=== PATIENT | female | born 1955 | race Caucasian/White ===

== ENCOUNTER 2023-05-04 13:42 | Day surgery (SDC) | payer MEDICARE ==
[2023-05-04] MEDS: Polymyxin B/Trimethoprim 10 ML Bottle EYELF SCH (14:22)
[2023-05-04] MEDS: Brimonidine 0.2% Ophth Soln 5 ML Bottle EYELF SCH (14:26)
[2023-05-04] MEDS: Phenylephrine 2.5% Ophth Soln 2 ML Bot EYELF SCH (14:32)
[2023-05-04] MEDS: Tropicamide 1% Ophth Soln 3 ML Bottle EYELF SCH (14:37)
[2023-05-04] MEDS: Tetracaine HCl/PF 0.5% 4 ML Bottle EYEBOTH SCH (15:29)
[2023-05-04] MEDS: Lidocaine 1% PF 2 ML SDV INJECT SCH (15:47)
[2023-05-04] MEDS: Cefuroxime 10 MG/ML SYRINGE EYELF SCH (15:59)
[2023-05-04] MEDS: Pilocarpine 4% Ophth Soln 15 ML Bot EYELF SCH (16:00)
== END 2023-05-04 16:14 | disposition home or self-care (01) ==
LOC: JD.SDS 13:42
PROVIDERS: ATTEND Ophthalmology
DX: H25.89 Other age-related cataract (principal); D23.111 Other benign neoplasm of skin of right upper eyelid, including canthus; D23.121 Other benign neoplasm of skin of left upper eyelid, including canthus; D48.5 Neoplasm of uncertain behavior of skin
CPT/HCPCS: A9270-GY; J0697; J3490

== ENCOUNTER 2023-10-10 10:09 | Emergency (ER) | payer MEDICARE ==
[2023-10-10 11:08] LABS: APPEARANCE,URINE CLOUDY (Clear); BILIRUBIN,URINE NEGATIVE (Negative); COLOR,URINE DARK YELLOW (Yellow); GLUCOSE,URINE NEGATIVE (Negative); KETONES,URINE NEGATIVE (Negative); LEUKOCYTE ESTERASE,URINE TRACE (Negative); NITRITE,URINE POSITIVE (Negative); OCCULT BLOOD,URINE 3+ (Negative); PROTEIN,URINE 1+ (Negative)
[2023-10-10 11:26] LABS: AMORPHOUS SEDIMENT,URINE FEW /hpf (NOT SEEN); BACTERIA,URINE MANY /hpf (FEW); MUCUS,URINE MODERATE /hpf (FEW); RBC,URINE 20-30 /hpf (0-5); SQUAMOUS EPITHELIAL CELLS,UR 0-5 /hpf (0-5)
[2023-10-10 11:27] LABS: YEAST BUDDING,URINE RARE (NOT SEEN)
== END 2023-10-10 12:35 | disposition home or self-care (01) ==
LOC: JD.ED 10:09
DX: N39.0 Urinary tract infection, site not specified (principal); N32.81 Overactive bladder; J44.9 Chronic obstructive pulmonary disease, unspecified; Z79.899 Other long term (current) drug therapy; Z79.82 Long term (current) use of aspirin
CPT/HCPCS: 51798; 81001; 87086; 87088; 87186; 99283

== ENCOUNTER 2024-08-02 13:04 | Inpatient (IN) | payer MEDICARE ==
[2024-08-02] MEDS: methylPREDNISolone Sodium Succinate 125 MG/2 ML SDV IVPUSH ONE (13:21)
[2024-08-02] MEDS: Sodium Chloride 0.9% 10 ML Syringe FLUSH PRN (13:21)
[2024-08-02 13:29] LABS: BASOPHILS PERCENT AUTO 0.2 % (0.0-1.0); EOSINOPHILS PERCENT AUTO 0.2 % (0.0-6.0); HEMATOCRIT 41.9 % (37.0-47.0); HEMOGLOBIN 13.6 gm/dl (12.0-16.0); IMMATURE GRAN ABSOLUTE AUTO 0.05 K/mm3 (0.00-0.05); IMMATURE GRAN PERCENT AUTO 0.4 % (0.0-0.4); LYMPHOCYTES ABSOLUTE AUTO 1.1 K/mm3 (1.0-4.8); MEAN CORPUSCULAR HEMOGLOBIN 32.2 pg (28.0-32.0); MEAN CORPUSCULAR HGB CONC 32.5 g/dl (32.0-36.0); MEAN CORPUSCULAR VOLUME 99.1 fl (83.0-99.0); MONOCYTES ABSOLUTE AUTO 1.4 K/mm3 (0.0-0.8); MONOCYTES PERCENT AUTO 11.6 % (0.0-8.0); NEUTROPHILS ABSOLUTE AUTO 9.5 K/mm3 (1.8-7.7); NEUTROPHILS PERCENT AUTO 78.6 % (41.0-71.0); PLATELET COUNT,PLT 201 K/mm3 (150-400); RED BLOOD CELL COUNT 4.23 M/mm3 (4.10-5.30); WHITE BLOOD CELL COUNT,WBC 12.07 K/mm3 (3.9-11.3)
[2024-08-02] MEDS: Albuterol/Ipratropium 3.0-0.5 MG/3 ML Neb Soln NEB ONE (13:38)
[2024-08-02 13:53] LABS: LACTIC ACID 0.9 mmol/L (0.4-2.0)
[2024-08-02 14:05] LABS: ALBUMIN 3.5 g/dl (3.4-5.0); BILIRUBIN TOTAL 0.6 mg/dL (0.2-1.0); BUN/CREATININE RATIO 17.1 (14-18); CALCIUM 8.7 mg/dL (8.5-10.1); CREATININE 0.7 mg/dL (0.55-1.02); EST CRCL DRUG DOSING (CG) 60.59 mL/min; MAGNESIUM 2.1 mg/dL (1.8-2.4); PROTEIN TOTAL,TP 6.9 g/dl (6.4-8.2); TSH 0.76 uIU/mL (0.358-3.74)
[2024-08-02 14:16] LABS: BASE EXCESS ARTERIAL 7.1 (-2-2.0); BICARBONATE,ARTERIAL 33.1 meq/L (22.0-26.0); O2 SATURATION ARTERIAL 97.1 % (96.0-97.0)
[2024-08-02] MEDS: Albuterol/Ipratropium 3.0-0.5 MG/3 ML Neb Soln ONE (14:46)
[2024-08-02 14:59] LABS: BILIRUBIN,URINE 1+ (Negative); COLOR,URINE YELLOW (Yellow); GLUCOSE,URINE NEGATIVE (Negative); KETONES,URINE NEGATIVE (Negative); LEUKOCYTE ESTERASE,URINE NEGATIVE (Negative); NITRITE,URINE NEGATIVE (Negative); OCCULT BLOOD,URINE 3+ (Negative); PH,URINE 7.5 (5.0-8.0); PROTEIN,URINE 3+ (Negative); UROBILINOGEN,URINE 0.2 (0.2-1.0)
[2024-08-02 15:04] LABS: APPEARANCE,URINE SLT CLOUDY (Clear)
[2024-08-02 15:09] LABS: BACTERIA,URINE MODERATE /hpf (FEW); MUCUS,URINE FEW /hpf (FEW); RBC,URINE TOO NUMEROUS TO CNT /hpf (0-5); SQUAMOUS EPITHELIAL CELLS,UR 0-5 /hpf (0-5); WBC,URINE 0-5 /hpf (0-5)
[2024-08-02 15:10] LABS: BARBITURATE SCREEN,URINE NEGATIVE (CUTOFF=200); BENZODIAZEPINES SCREEN,URINE NEGATIVE (CUTOFF=150); BUPRENORPHINE SCREEN,URINE NEGATIVE (CUTOFF=10); METHADONE SCREEN, URINE NEGATIVE (CUTOFF=200); METHAMPHETAMINES SCREEN, URINE NEGATIVE (CUTOFF=500); OXYCODONE SCREEN,URINE PRESUMPTIVE POSITIVE (CUT0FF=100); THC SCREEN,URINE 20 NG/ML NEGATIVE (CUTOFF=50)
[2024-08-02 15:12] LABS: AMPHETAMINES SCREEN, URINE NEGATIVE (CUTOFF=500)
[2024-08-02] MEDS: cefTRIAXone 1 GM Vial IVPUSH ONE (15:33)
[2024-08-02] MEDS: Gabapentin 300 MG Cap PO ONE (15:33)
[2024-08-02] MEDS: Morphine 15 MG Tab.ER PO ONE (15:33)
[2024-08-02] MEDS: SUMAtriptan 50 MG Tab PO ONE (15:33)
[2024-08-02] MEDS: Nicotine 21 MG/24 Hr Patch TRDERM ONE (15:34)
[2024-08-02] MEDS ORDERED: Sodium Chloride 0.9% 100 ML IV SCH (16:30)
[2024-08-02] MEDS: Iopamidol 755 Mg/ML 100 ML Bottle IVPUSH ONE (16:40)
[2024-08-02] MEDS: Aspirin 81 MG Tab.Chew PO ONE (17:58)
[2024-08-02] MEDS ORDERED: Albuterol/Ipratropium 3.0-0.5 MG/3 ML Neb Soln NEB PRN (18:44)
[2024-08-02] MEDS ORDERED: Naloxone 0.4 MG/ML SDV IVPUSH PRN (18:46)
[2024-08-02] MEDS ORDERED: Acetaminophen 325 MG Tab PO PRN (18:46)
[2024-08-02] MEDS ORDERED: Melatonin 3 MG Tab PO PRN (18:46)
[2024-08-02] MEDS ORDERED: Sennosides/Docusate Sodium 50-8.6 MG Tab PO PRN (18:46)
[2024-08-02] MEDS ORDERED: Ondansetron 4 MG/2 ML SDV IV PRN (18:46)
[2024-08-02] MEDS ORDERED: Cyclobenzaprine 10 MG Tab PO PRN (18:48)
[2024-08-02] MEDS ORDERED: SUMAtriptan 50 MG Tab PO PRN (18:48)
[2024-08-02] MEDS: Azithromycin 500 MG in Sodium Chloride 0.9% 250 ML IV SCH (19:47)
[2024-08-02] MEDS: oxyCODONE 5 MG Tab PO PRN (20:13)
[2024-08-02] MEDS: Famotidine 20 MG/2 ML SDV IVPUSH SCH (20:14)
[2024-08-03] MEDS: Morphine 2 MG/ML SYRINGE IVPUSH PRN (00:41)
[2024-08-03] MEDS ORDERED: Calcium Carbonate 500 MG Tab.Chew PO PRN (02:14)
[2024-08-03] MEDS: Gabapentin 600 MG Tab PO SCH (04:33)
[2024-08-03] MEDS: Gabapentin 100 MG Cap PO SCH (04:33)
[2024-08-03] MEDS ORDERED: SUMAtriptan 50 MG Tab PO PRN (04:47)
[2024-08-03] MEDS: Non-Formulary Medication 1 Each (Gabapentin 800 MG Tablet) PO SCH (05:17)
[2024-08-03] MEDS: Pantoprazole 40 MG Tab.CR PO SCH (05:23)
[2024-08-03 05:49] LABS: BASOPHILS PERCENT AUTO 0.1 % (0.0-1.0); HEMATOCRIT 42.7 % (37.0-47.0); HEMOGLOBIN 14.2 gm/dl (12.0-16.0); IMMATURE GRAN ABSOLUTE AUTO 0.03 K/mm3 (0.00-0.05); IMMATURE GRAN PERCENT AUTO 0.3 % (0.0-0.4); LYMPHOCYTES PERCENT AUTO 10.4 % (24.0-44.0); MEAN CORPUSCULAR HEMOGLOBIN 32.3 pg (28.0-32.0); MEAN CORPUSCULAR HGB CONC 33.3 g/dl (32.0-36.0); MEAN PLATELET VOLUME 9.4 fl (9.4-12.3); MONOCYTES ABSOLUTE AUTO 0.7 K/mm3 (0.0-0.8); MONOCYTES PERCENT AUTO 7.3 % (0.0-8.0); NEUTROPHILS ABSOLUTE AUTO 7.7 K/mm3 (1.8-7.7); NEUTROPHILS PERCENT AUTO 81.9 % (41.0-71.0); PLATELET COUNT,PLT 200 K/mm3 (150-400); WHITE BLOOD CELL COUNT,WBC 9.41 K/mm3 (3.9-11.3)
[2024-08-03 06:28] LABS: A/G RATIO 0.9 (1-2); ANION GAP 9.2 (5-15); BILIRUBIN TOTAL 0.5 mg/dL (0.2-1.0); C-REACTIVE PROTEIN 7.98 mg/dL (<0.30); CALCIUM 9.1 mg/dL (8.5-10.1); CREATININE 0.6 mg/dL (0.55-1.02); EST CRCL DRUG DOSING (CG) 69.27 mL/min; MAGNESIUM 2.3 mg/dL (1.8-2.4); POTASSIUM,K 4.2 mEq/L (3.5-5.1); PROTEIN TOTAL,TP 6.5 g/dl (6.4-8.2)
[2024-08-03] MEDS: predniSONE 20 MG Tab PO SCH (06:45)
[2024-08-03] MEDS ORDERED: Enoxaparin 40 MG/0.4 ML Syringe SUBCUT SCH (09:00)
[2024-08-03] MEDS ORDERED: Non-Formulary Medication 1 Each (Omeprazole [Omeprazole] 40 MG Capsule.Dr) PO SCH (09:00)
[2024-08-03] MEDS ORDERED: Morphine 15 MG Tab.ER PO SCH (09:00)
[2024-08-03] MEDS ORDERED: Nicotine 21 MG/24 Hr Patch TRDERM SCH (09:00)
== END 2024-08-03 10:26 | disposition left against medical advice (07) | DRG 193 ==
LOC: JD.ED 13:04 → JD.MS 18:09
PROVIDERS: ADMIT Family Medicine; ATTEND Student in an Organized Health Care Education/Training Program
PROC: 4A033R1 Measurement of Arterial Saturation, Peripheral, Percutaneous Approach (ICD-10-PCS; principal; 2024-08-02)
DX: J18.9 Pneumonia, unspecified organism (principal); I21.A1 Myocardial infarction type 2; J96.01 Acute respiratory failure with hypoxia; J96.02 Acute respiratory failure with hypercapnia; J44.1 Chronic obstructive pulmonary disease with (acute) exacerbation; F11.20 Opioid dependence, uncomplicated; J44.0 Chronic obstructive pulmonary disease with (acute) lower respiratory infection; K59.09 Other constipation; I27.21 Secondary pulmonary arterial hypertension; G43.909 Migraine, unspecified, not intractable, without status migrainosus; F17.210 Nicotine dependence, cigarettes, uncomplicated; G62.9 Polyneuropathy, unspecified; R91.8 Other nonspecific abnormal finding of lung field; R79.89 Other specified abnormal findings of blood chemistry; Z79.52 Long term (current) use of systemic steroids; Z87.81 Personal history of (healed) traumatic fracture; Z98.49 Cataract extraction status, unspecified eye; Z99.81 Dependence on supplemental oxygen; Z79.2 Long term (current) use of antibiotics; Z98.890 Other specified postprocedural states; Z79.899 Other long term (current) drug therapy
CPT/HCPCS: 36415; 36600; 71045; 71275; 80053; 80306; 81001; 82803; 83605; 83735; 84443; 84484 ×3; 85025; 85379; 87428; 93005; 94640; 96374; 96375; 99285; A9270 ×5; C1758; J0696; J2919; Q9967; 84100; 86140; 93010; 94761; J0456; J2270; J7050; J7512

== ENCOUNTER 2024-12-09 09:45 | Emergency (ER) | payer MEDICARE ==
[2024-12-09] MEDS: Ketorolac 30 MG/ML SDV IM ONE (11:21)
== END 2024-12-09 12:44 | disposition home or self-care (01) ==
LOC: JD.ED 09:45
DX: M25.511 Pain in right shoulder (principal); J44.9 Chronic obstructive pulmonary disease, unspecified; Z79.899 Other long term (current) drug therapy
CPT/HCPCS: 73030-26-RT; 73030-RT; 73060-26-RT; 73060-RT; 96372; 99283; J1885

== ENCOUNTER 2024-12-11 06:00 | Day surgery (SDC) | payer MEDICARE ==
[~2024-12-11 06:00] MED LIST: Sodium Chloride 0.9% 10 ML Syringe FLUSH PRN; Sodium Chloride 0.9% 10 ML Syringe FLUSH SCH
[2024-12-11] MEDS ORDERED: Propofol 200 MG/20 ML SDV ONE (06:13)
[2024-12-11] MEDS: Lactated Ringers 1,000 ML IV SCH (06:20)
[2024-12-11] MEDS ORDERED: EPINEPHrine 1 MG/ML SDV ONE (06:30)
[2024-12-11] MEDS: Triamcinolone Acetonide 40 MG/ML 1 ML SDV ONE (07:18)
== END 2024-12-11 08:30 | disposition home or self-care (01) ==
LOC: JD.SDS 06:00
PROVIDERS: ATTEND Orthopaedic Surgery
DX: G56.02 Carpal tunnel syndrome, left upper limb (principal); M19.011 Primary osteoarthritis, right shoulder; E78.2 Mixed hyperlipidemia; F17.210 Nicotine dependence, cigarettes, uncomplicated; Z79.899 Other long term (current) drug therapy
CPT/HCPCS: 20610; 64721; J0169; J0665; J0690; J2003; J2704; J3301; J7120